=== PATIENT | male | born 1975 | race Native Hawaiian/Other Pacific Islander ===

== ENCOUNTER → 2023-01-03 | Outpatient (CLI) | payer OTHER ==
[~2023-01-03] MED LIST: ALLERGY REL10 MG OR; GABA300C2 PO; JANUVIA100 MG PO; LISITAB PO; LOVA20TA PO; SERT50TA PO
== END ==
LOC: RAD 09:14
PROVIDERS: ATTEND Nurse Practitioner Family
DX: R31.9 Hematuria, unspecified (principal)

== ENCOUNTER 2023-01-07 17:38 | Emergency (ER) | payer OTHER ==
[~2023-01-07] VITALS: Ht 188 cm; Wt 133.8 kg
[2023-01-07 17:48] VITALS: TEMP 98.1
[2023-01-07 19:05] LABS: PLATELET COUNT 371 K/uL (142-355)
[2023-01-07 19:15] LABS: POTASSIUM 3.1 mmol/L (3.6-5.2)
[2023-01-07 19:55] VITALS: BP 177/92
== END 2023-01-07 19:55 | disposition home or self-care (01) ==
LOC: ED 17:38
PROVIDERS: Emergency Medicine Emergency Medical Services
DX: N13.2 Hydronephrosis with renal and ureteral calculous obstruction (principal); E87.6 Hypokalemia
CPT/HCPCS: 36415; 80048; 81000; 85027; 96361; 96374; 96375; 99284; J1885; J2270